=== PATIENT | male | born 1935 | race Hispanic/Latino ===

== ENCOUNTER → 2021-09-15 | Outpatient (CLI) | payer OTHER ==
[~2021-09-15] MED LIST: TAMS-1 PO
== END | disposition home or self-care (01) ==
LOC: OIH 11:21
PROVIDERS: ATTEND Internal Medicine Cardiovascular Disease
DX: I70.0 Atherosclerosis of aorta (principal); Z95.1 Presence of aortocoronary bypass graft; Z95.2 Presence of prosthetic heart valve
CPT/HCPCS: 71046

== ENCOUNTER 2021-10-29 13:27 | Inpatient (IN) | payer OTHER ==
[~2021-10-29] VITALS: Ht 167.6 cm; Wt 98.6 kg
[2021-10-29 14:27] LABS: BASOPHILS % (AUTO) 0.5 % (0.0-5.0); EOSINOPHILS % (AUTO) 1.5 % (0.0-8.0); HEMATOCRIT 32.7 % (42-54); LYMPHOCYTES % (AUTO) 7.9 % (21.0-51.0); MEAN CORPUSCULAR HEMOGLOBIN 27.2 pg (27.0-33.0); MEAN CORPUSCULAR HGB CONC 31.5 g/dL (32.0-36.0); MEAN CORPUSCULAR VOLUME 86.5 fL (79-99); MONOCYTES % (AUTO) 11.7 % (3.0-13.0); NEUTROPHILS % (AUTO) 75.8 % (40.0-77.0); PLATELET COUNT (AUTO) 261 K/uL (130-400); RED BLOOD CELL COUNT(AUTO) 3.78 MIL/uL (4.50-6.20); RED CELL DISTRIBUTION WIDTH 16.8 % (11.0-15.5)
[2021-10-29 14:35] LABS: CREATININE 1.7 mg/dL (0.5-1.5); POTASSIUM 4.4 mmol/L (3.5-5.1)
[2021-10-29 14:40] LABS: ALBUMIN 1.8 g/dL (3.5-5.0); BILIRUBIN,TOTAL 0.9 mg/dL (0.2-1.0); MAGNESIUM 2.2 mg/dL (1.80-2.40); TOTAL PROTEIN, SERUM 6.4 g/dL (6.0-8.3)
[2021-10-29] MEDS ORDERED: PHARMACY COMMUNICATION MISC SCH (15:30)
[2021-10-29 15:45] VITALS: BP 130/64
[2021-10-29] MEDS ORDERED: HEPARIN 25000 UNITS/D5W 250ML IV SCH (16:00)
[2021-10-29 18:37] LABS: APPEARANCE,URINE Turbid (CLEAR); BILIRUBIN,URINE Small (NEGATIVE); COLOR,URINE Dark Yellow (YELLOW); GLUCOSE, URINE (UA) Negative (NEGATIVE); KETONES,URINE Trace mg/dL (NEGATIVE); LEUKOCYTE ESTERASE ,URINE Large (NEGATIVE); NITRATE,URINE Negative (NEGATIVE); OCCULT BLOOD,URINE Negative (NEGATIVE); PROTEIN,URINE POS 1+ mg/dL (NEGATIVE)
[2021-10-29 18:42] LABS: AMPHET/METH SCREEN,URINE NEGATIVE (NEGATIVE); BARBITURATE SCREEN, URINE NEGATIVE (NEGATIVE); BENZODIAZEPINES SCREEN,URINE NEGATIVE (NEGATIVE); CANNABINOID SCREEN,URINE NEGATIVE (NEGATIVE); COCAINE SCREEN,URINE NEGATIVE (NEGATIVE); OPIATE SCREEN,URINE NEGATIVE (NEGATIVE); PHENCYCLIDINE SCREEN,URINE NEGATIVE (NEGATIVE)
[2021-10-29 18:56] LABS: SQUAMOUS EPITHELIAL CELL,UR 30-50 /HPF (0-2)
[2021-10-29 19:01] LABS: HYALINE CASTS, URINE 0-1 /LPF (0-1 /LPF); MUCUS,URINE Few LPF (None Seen)
[2021-10-29 19:03] LABS: WBC,URINE >100 /HPF (0-1)
[2021-10-29 19:04] LABS: BACTERIA,URINE Moderate /HPF (None Seen)
[2021-10-29 19:05] LABS: RBC,URINE None Seen /HPF (0-1)
[2021-10-29 19:06] LABS: YEAST,URINE BUDDING Rare /HPF (None Seen)
[2021-10-29 19:45] VITALS: BP 131/58
[2021-10-29] MEDS: METOPROLOL TARTRATE 25 MG TAB PO SCH (20:37)
[2021-10-29] MEDS ORDERED: METOPROLOL TARTRATE 25 MG TAB PO SCH (21:00)
[2021-10-29] MEDS ORDERED: 0.9%NACL 10ML VIAL ONE (21:49)
[2021-10-29] MEDS: CEFTRIAXONE 1G VIAL IVP SCH (21:51)
[2021-10-29 23:49] VITALS: BP 125/56
[2021-10-30 03:45] VITALS: BP 136/63
[2021-10-30] MEDS ORDERED: HYDROCODONE/ACETAMINOPHEN 5/325 MG TAB PO ONE (04:00)
[2021-10-30 07:50] LABS: BASOPHILS % (AUTO) 0.2 % (0.0-5.0); EOSINOPHILS % (AUTO) 2.2 % (0.0-8.0); HEMATOCRIT 31.3 % (42-54); LYMPHOCYTES % (AUTO) 9.2 % (21.0-51.0); MEAN CORPUSCULAR HEMOGLOBIN 26.8 pg (27.0-33.0); MEAN CORPUSCULAR HGB CONC 31.3 g/dL (32.0-36.0); MEAN CORPUSCULAR VOLUME 85.8 fL (79-99); MONOCYTES % (AUTO) 11.4 % (3.0-13.0); NEUTROPHILS % (AUTO) 74.7 % (40.0-77.0); PLATELET COUNT (AUTO) 238 K/uL (130-400); RED BLOOD CELL COUNT(AUTO) 3.65 MIL/uL (4.50-6.20); RED CELL DISTRIBUTION WIDTH 16.7 % (11.0-15.5)
[2021-10-30 08:09] LABS: CREATININE 1.6 mg/dL (0.5-1.5); POTASSIUM 4.3 mmol/L (3.5-5.1)
[2021-10-30 08:21] VITALS: BP 133/55
[2021-10-30] MEDS: METOPROLOL TARTRATE 25 MG TAB PO SCH ×2 (09:32→20:47)
[2021-10-30 10:30] LABS: APPEARANCE,URINE CLEAR (CLEAR); BILIRUBIN,URINE NEGATIVE (NEGATIVE); COLOR,URINE YELLOW (YELLOW); GLUCOSE, URINE (UA) NEGATIVE (NEGATIVE); KETONES,URINE NEGATIVE (NEGATIVE); LEUKOCYTE ESTERASE ,URINE NEGATIVE (NEGATIVE); NITRATE,URINE NEGATIVE (NEGATIVE); OCCULT BLOOD,URINE NEGATIVE (NEGATIVE); PROTEIN,URINE TRACE mg/dL (NEGATIVE)
[2021-10-30] MEDS ORDERED: SENN8.6T32 PO (10:30)
[2021-10-30] MEDS ORDERED: OMEP40CA21 PO (10:30)
[2021-10-30] MEDS ORDERED: LISI5TAB21 PO (10:30)
[2021-10-30] MEDS ORDERED: METO-408 PO (10:30)
[2021-10-30] MEDS ORDERED: APIX2.5T PO (10:30)
[2021-10-30] MEDS ORDERED: ATOR40TA71 PO (10:30)
[2021-10-30] MEDS ORDERED: ONDA4TAB10 PO (10:30)
[2021-10-30] MEDS ORDERED: AMOX-426 PO (10:30)
[2021-10-30] MEDS ORDERED: LACT10PA5 PO (10:30)
[2021-10-30 10:46] LABS: BACTERIA,URINE Rare /HPF (None Seen); SQUAMOUS EPITHELIAL CELL,UR Rare /HPF (0-2)
[2021-10-30] MEDS ORDERED: LACTULOSE 20 GM/30 ML UDCUP PO PRN (11:30)
[2021-10-30 11:36] LABS: ALBUMIN 1.6 g/dL (3.5-5.0); BILIRUBIN,DIRECT 0.5 mg/dL (0.0-0.3); BILIRUBIN,TOTAL 0.8 mg/dL (0.2-1.0); TOTAL PROTEIN, SERUM 6.1 g/dL (6.0-8.3)
[2021-10-30 12:18] VITALS: BP 114/49
[2021-10-30] MEDS ORDERED: ESCI-8 PO (14:48)
[2021-10-30] MEDS ORDERED: BACL5TAB PO (14:48)
[2021-10-30] MEDS ORDERED: FURO20TA4 PO (14:48)
[2021-10-30 16:41] VITALS: BP 113/45
[2021-10-30 19:15] VITALS: BP 127/52
[2021-10-30] MEDS: ATORVASTATIN 40 MG TABLET PO SCH (20:46)
[2021-10-30] MEDS: CEFTRIAXONE 1G VIAL IVP SCH (20:47)
[2021-10-31] VITALS (21 sets, daily range): BP systolic 105–147; BP diastolic 45–96
[2021-10-31 04:09] LABS: BASOPHILS % (AUTO) 0.5 % (0.0-5.0); EOSINOPHILS % (AUTO) 3.2 % (0.0-8.0); HEMATOCRIT 30.1 % (42-54); LYMPHOCYTES % (AUTO) 10.5 % (21.0-51.0); MEAN CORPUSCULAR HEMOGLOBIN 26.9 pg (27.0-33.0); MEAN CORPUSCULAR HGB CONC 30.9 g/dL (32.0-36.0); MONOCYTES % (AUTO) 11.2 % (3.0-13.0); NEUTROPHILS % (AUTO) 71.5 % (40.0-77.0); PLATELET COUNT (AUTO) 275 K/uL (130-400); RED BLOOD CELL COUNT(AUTO) 3.46 MIL/uL (4.50-6.20); RED CELL DISTRIBUTION WIDTH 16.8 % (11.0-15.5); WHITE BLOOD COUNT (AUTO) 9.6 K/uL (4.8-10.8)
[2021-10-31 04:23] LABS: ALBUMIN 1.4 g/dL (3.5-5.0); BILIRUBIN,TOTAL 0.6 mg/dL (0.2-1.0); CREATININE 1.6 mg/dL (0.5-1.5); POTASSIUM 4.1 mmol/L (3.5-5.1); TOTAL PROTEIN, SERUM 5.6 g/dL (6.0-8.3)
[2021-10-31] MEDS ORDERED: 0.9%NACL 1000ML 1,000 ML IV ONE (07:55)
[2021-10-31] MEDS ORDERED: IOHEXOL 350 MG/ML 100ML INFUS..BTL IV ONE (08:20)
[2021-10-31] MEDS: SENNOSIDES 8.6 MG TABLET PO SCH (10:38)
[2021-10-31] MEDS: METOPROLOL TARTRATE 25 MG TAB PO SCH ×2 (10:38→20:37)
[2021-10-31] MEDS: PANTOPRAZOLE 40 MG TAB DR PO SCH (10:38)
[2021-10-31] MEDS ORDERED: HEPARIN 25,000 UNITS/250ML D5W 250 ML IV SCH (13:30)
[2021-10-31 13:45] LABS: BASOPHILS % (AUTO) 0.7 % (0.0-5.0); EOSINOPHILS % (AUTO) 2.2 % (0.0-8.0); HEMATOCRIT 31.8 % (42-54); LYMPHOCYTES % (AUTO) 8.1 % (21.0-51.0); MEAN CORPUSCULAR HEMOGLOBIN 27.3 pg (27.0-33.0); MEAN CORPUSCULAR HGB CONC 31.1 g/dL (32.0-36.0); MEAN CORPUSCULAR VOLUME 87.8 fL (79-99); MONOCYTES % (AUTO) 8.9 % (3.0-13.0); NEUTROPHILS % (AUTO) 77.6 % (40.0-77.0); PLATELET COUNT (AUTO) 255 K/uL (130-400); RED BLOOD CELL COUNT(AUTO) 3.62 MIL/uL (4.50-6.20); RED CELL DISTRIBUTION WIDTH 16.9 % (11.0-15.5); WHITE BLOOD COUNT (AUTO) 9.7 K/uL (4.8-10.8)
[2021-10-31] MEDS ORDERED: IOHEXOL-350 50ML VIAL IV ONE (20:17)
[2021-10-31] MEDS ORDERED: PROPOFOL 10 MG/ML 20ML VIAL IV ONE (20:22)
[2021-10-31] MEDS ORDERED: ONDANSETRON 4MG INJ ONE (20:22)
[2021-10-31] MEDS ORDERED: LIDOCAINE PF 100MG/5ML (2%) SYRINGE 5ML ONE (20:22)
[2021-10-31] MEDS ORDERED: FENTANYL CITRATE PF 50 MCG/1 ML 5ML AMP IV ONE (20:23)
[2021-10-31] MEDS ORDERED: ROCURONIUM 10MG/1ML SYR 10 MG/ML ML ONE (20:23)
[2021-10-31] MEDS: ATORVASTATIN 40 MG TABLET PO SCH (20:37)
[2021-10-31] MEDS: CEFTRIAXONE 1G VIAL IVP SCH ×2 (21:00→21:06)
[2021-10-31] MEDS ORDERED: EPHEDRINE SULFATE 50 MG/ML AMPULE ONE (21:05)
[2021-10-31] MEDS ORDERED: GLYCOPYRROLATE 1 MG/5 ML SYRINGE ONE (21:34)
[2021-11-01] VITALS (10 sets, daily range): BP systolic 96–147; BP diastolic 46–63
[2021-11-01 03:32] LABS: BASOPHILS % (AUTO) 0.3 % (0.0-5.0); EOSINOPHILS % (AUTO) 1.8 % (0.0-8.0); HEMATOCRIT 30.6 % (42-54); LYMPHOCYTES % (AUTO) 7.1 % (21.0-51.0); MEAN CORPUSCULAR HEMOGLOBIN 26.6 pg (27.0-33.0); MEAN CORPUSCULAR HGB CONC 30.7 g/dL (32.0-36.0); MEAN CORPUSCULAR VOLUME 86.7 fL (79-99); NEUTROPHILS % (AUTO) 81.1 % (40.0-77.0); PLATELET COUNT (AUTO) 256 K/uL (130-400); RED BLOOD CELL COUNT(AUTO) 3.53 MIL/uL (4.50-6.20); WHITE BLOOD COUNT (AUTO) 10.9 K/uL (4.8-10.8)
[2021-11-01 03:48] LABS: ALBUMIN 1.4 g/dL (3.5-5.0); BILIRUBIN,TOTAL 0.5 mg/dL (0.2-1.0); CREATININE 1.5 mg/dL (0.5-1.5); POTASSIUM 4.5 mmol/L (3.5-5.1); TOTAL PROTEIN, SERUM 5.6 g/dL (6.0-8.3)
[2021-11-01] MEDS: PANTOPRAZOLE 40 MG TAB DR PO SCH (08:43)
[2021-11-01] MEDS: METOPROLOL TARTRATE 25 MG TAB PO SCH ×2 (08:43→20:19)
[2021-11-01] MEDS: TAMSULOSIN HCL 0.4 MG CAP.ER.24H PO SCH (08:43)
[2021-11-01] MEDS: OXYBUTYNIN CHLORIDE 5 MG TABLET PO SCH (08:43)
[2021-11-01] MEDS: SENNOSIDES 8.6 MG TABLET PO SCH (08:43)
[2021-11-01] MEDS ORDERED: CEPH500T PO (10:56)
[2021-11-01] MEDS ORDERED: METO-408 PO (10:57)
[2021-11-01] MEDS: ATORVASTATIN 40 MG TABLET PO SCH (20:19)
[2021-11-01] MEDS: CEFTRIAXONE 1G VIAL IVP SCH (20:19)
[2021-11-02 04:00] VITALS: BP 116/52
[2021-11-02 07:00] VITALS: BP 127/57
[2021-11-02] MEDS: PANTOPRAZOLE 40 MG TAB DR PO SCH (07:57)
[2021-11-02] MEDS: TAMSULOSIN HCL 0.4 MG CAP.ER.24H PO SCH (07:58)
[2021-11-02] MEDS: SENNOSIDES 8.6 MG TABLET PO SCH (07:58)
[2021-11-02] MEDS: METOPROLOL TARTRATE 25 MG TAB PO SCH ×2 (07:58→20:26)
[2021-11-02] MEDS: OXYBUTYNIN CHLORIDE 5 MG TABLET PO SCH (07:58)
[2021-11-02 11:00] VITALS: BP 115/49
[2021-11-02 13:40] LABS: HEMATOCRIT 30.3 % (42-54); MEAN CORPUSCULAR HEMOGLOBIN 27.5 pg (27.0-33.0); MEAN CORPUSCULAR VOLUME 88.6 fL (79-99); RED BLOOD CELL COUNT(AUTO) 3.42 MIL/uL (4.50-6.20); RED CELL DISTRIBUTION WIDTH 17.2 % (11.0-15.5)
[2021-11-02 14:04] LABS: CREATININE 1.5 mg/dL (0.5-1.5); POTASSIUM 3.8 mmol/L (3.5-5.1)
[2021-11-02 16:00] VITALS: BP 139/57
[2021-11-02 20:00] VITALS: BP 129/49
[2021-11-02] MEDS: CEFTRIAXONE 1G VIAL IVP SCH (20:26)
[2021-11-02] MEDS: ATORVASTATIN 40 MG TABLET PO SCH (20:26)
[2021-11-03 00:07] VITALS: BP 104/58
[2021-11-03 04:00] VITALS: BP 126/54
[2021-11-03 04:09] LABS: HEMATOCRIT 30.2 % (42-54); MEAN CORPUSCULAR HEMOGLOBIN 26.6 pg (27.0-33.0); MEAN CORPUSCULAR HGB CONC 30.8 g/dL (32.0-36.0); MEAN CORPUSCULAR VOLUME 86.5 fL (79-99); RED BLOOD CELL COUNT(AUTO) 3.49 MIL/uL (4.50-6.20)
[2021-11-03 04:31] LABS: CREATININE 1.2 mg/dL (0.5-1.5); POTASSIUM 3.9 mmol/L (3.5-5.1)
[2021-11-03] MEDS ORDERED: APIXABAN 2.5 MG TABLET PO ONE (07:24)
[2021-11-03 08:00] VITALS: BP 146/67
[2021-11-03] MEDS: OXYBUTYNIN CHLORIDE 5 MG TABLET PO SCH (08:31)
[2021-11-03] MEDS: SENNOSIDES 8.6 MG TABLET PO SCH (08:31)
[2021-11-03] MEDS: TAMSULOSIN HCL 0.4 MG CAP.ER.24H PO SCH (08:31)
[2021-11-03] MEDS: PANTOPRAZOLE 40 MG TAB DR PO SCH (08:31)
[2021-11-03] MEDS: METOPROLOL TARTRATE 25 MG TAB PO SCH (08:34)
[2021-11-03] MEDS ORDERED: APIXABAN 2.5 MG TABLET PO SCH (09:00)
[2021-11-03 12:02] VITALS: BP 115/69
== END 2021-11-03 14:13 | DRG 660 ==
LOC: EDH 13:27 → EDHIP 13:46 → 2DH 15:27
PROVIDERS: ADMIT Hospitalist; ATTEND Hospitalist
PROC: 0T778DZ Dilation of Left Ureter with Intraluminal Device, Via Natural or Artificial Opening Endoscopic (ICD-10-PCS; principal; 2021-10-31 20:40)
PROC: BT1F1ZZ Fluoroscopy of Left Kidney, Ureter and Bladder using Low Osmolar Contrast (ICD-10-PCS; 2021-10-31 20:40)
DX: N13.1 Hydronephrosis with ureteral stricture, not elsewhere classified (principal); I12.0 Hypertensive chronic kidney disease with stage 5 chronic kidney disease or end stage renal disease; N13.4 Hydroureter; I48.0 Paroxysmal atrial fibrillation; N18.6 End stage renal disease; D72.829 Elevated white blood cell count, unspecified; E78.5 Hyperlipidemia, unspecified; N40.0 Benign prostatic hyperplasia without lower urinary tract symptoms; Z20.822 Contact with and (suspected) exposure to COVID-19; I25.10 Atherosclerotic heart disease of native coronary artery without angina pectoris; R54 Age-related physical debility; Z91.81 History of falling; Z95.1 Presence of aortocoronary bypass graft; Z95.3 Presence of xenogenic heart valve; Z91.14 Patient's other noncompliance with medication regimen; Z91.19 Patient's noncompliance with other medical treatment and regimen
CPT/HCPCS: 36415; 70450; 71045; 74176; 74400; 74420; 76705; 80048; 80053; 80076; 80305; 81001; 82948; 83735; 83880; 84145; 84443; 84484; 85025; 85027; 85730; 87088; 87635; 93005; 93306; 93970; 97039; A4314; A4354; C1769; C2617; G0378; J0696; J1644; J2001; J2405; J2704; J3010; J3490; J7030; J7120; Q9967